=== PATIENT | male | born 1965 | race Two or more races ===

== ENCOUNTER 2024-03-30 17:53 | Emergency (ER) | payer OTHER ==
[~2024-03-30] VITALS: Ht 170.2 cm; Wt 104.3 kg
[2024-03-30] MEDS ORDERED: SIMVASTATIN5 MG (18:36)
[2024-03-30] MEDS ORDERED: CEFTRIAXONE SODIUM 1,000 MG VIAL IV ONE (19:15)
[2024-03-30] MEDS ORDERED: TAMSULOSIN HCL 0.4 MG CAP PO ONE ×2 (19:15→19:32)
[2024-03-30] MEDS ORDERED: FAMOtidine 10 MG/ML (4ML VIAL) IV ONE (19:15)
[2024-03-30] MEDS ORDERED: CEFTRIAXONE SODIUM 1,000 MG VIAL ONE (19:32)
[2024-03-30] MEDS ORDERED: FAMOTIDINE/PF 20 MG/2 ML VIAL ONE (19:32)
[2024-03-30 20:07] LABS: HEMATOCRIT 42.4 % (39.0-48.0); HEMOGLOBIN 14.3 g/dL (13-16.00); MEAN CELL VOLUME 85.6 fL (80.0-100.00); MEAN CORPUSCULAR HEMOGLOBIN 28.9 pg (27.00-32.0); MEAN CORPUSCULAR HGB CONC 33.8 g/dl (32.0-36.0); PLATELET COUNT 268 K/uL (150-450); RED BLOOD COUNT 4.96 M/uL (4.00-6.00); RED CELL DISTRIBUTION WIDTH 14.6 % (11.5-14.5)
[2024-03-30 20:48] LABS: ALBUMIN 3.6 gm/dL (3.4-5.0); BILIRUBIN TOTAL 0.51 mg/dL (0.3-1.2); CALCIUM 9.3 mg/dL (8.5-10.1); CREATININE SERUM 1.65 mg/dL (0.70-1.30); GFR 43.37; GLOBULINA 4.2 G/DL (2.4-3.5); POTASSIUM 3.97 mEq/L (3.5-5.1); TOTAL PROTEIN 7.8 gm/dL (6.4-8.2)
[2024-03-30 21:24] LABS: PH,URINE 5.5 (5.0-8.0); URINE APPEARANCE Clear; URINE BILIRRUBIN Negative (NEGATIVE); URINE BLOOD Large; URINE COLOR Yellow; URINE GLUCOSE Negative (NEGATIVE); URINE KETONE Negative (NEGATIVE); URINE LEUKOCYTE Negative; URINE NITRATE Negative; URINE PROTEIN Negative (NEGATIVE); URINE UROBILINOGEN 0.2 E.U./dl
[2024-03-30 21:28] LABS: URINE BACTERIA 4.8 uL (0.0-1933); URINE EPITHELIAL CELLS 2.8 uL (0.0-38.8); URINE RBC 348.3 uL (0.0-20.8); URINE WBC 9.8 uL (0.0-23.2)
[2024-03-30] MEDS ORDERED: PEPCID AC20 MG PO (23:32)
[2024-03-30] MEDS ORDERED: KETO10TA2 PO (23:32)
[2024-03-30] MEDS ORDERED: TAMS0.4C PO (23:32)
[2024-03-30] MEDS ORDERED: ZOFRAN8 MG PO (23:32)
[2024-03-30] MEDS ORDERED: BACTRIM DS TAB1 EACH PO (23:32)
== END 2024-03-30 23:36 | disposition home or self-care (01) ==
LOC: ER 17:55
PROVIDERS: General Practice
DX: R10.9 Unspecified abdominal pain (principal)
CPT/HCPCS: 36415; 74177; Q9965